=== PATIENT | female | born 1980 ===

== ENCOUNTER 2017-01-12 09:33 | Emergency (ER) | payer OTHER, MEDICAID ==
[2017-01-12 09:48] VITALS: TEMP 97.7
--- NOTE | 2017-01-12 10:44 | C.PDOC ---
History Of Present Illness 36 y/o F c no PMHx p/w R wrist pain x 4 days. Pain is on the radial aspect of the wrist up the forearm. She denies injury or trauma but notes that at work, she is using her hands a lot and pulling on things. She denies fever, procedures. Time Seen by Provider: 01/12/17 10:37 Chief Complaint (Nursing): Upper Extremity Problem/Injury Past Medical History Vital Signs: Last Vital Signs Temp 97.7 F 01/12/17 09:59 Pulse 77 01/12/17 09:59 Resp 16 01/12/17 09:59 BP 145/87 01/12/17 09:59 Pulse Ox 100 01/12/17 11:45 Family History: States: No Known Family Hx - Social History Hx Alcohol Use: No Hx Substance Use: No - Immunization History Hx Tetanus Toxoid Vaccination: Yes Hx Influenza Vaccination: Yes Hx Pneumococcal Vaccination: No Review Of Systems Except As Marked, All Systems Reviewed And Found Negative. Constitutional: Negative for: Fever Musculoskeletal: Negative for: Hand Pain Physical Exam - Physical Exam Appears: No Acute Distress Skin: No Rash Extremity: Tenderness (R wrist snuffbox and radial aspect of wrist. No forearm or hand tenderness.) Extremity: Right: Normal ROM (wrist, elbow, supination/pronation) Pulses: Left Radial: Normal, Right Radial: Normal Neurological/Psych: Normal Motor, Normal Sensation ED Course And Treatment O2 Sat by Pulse Oximetry: 100 - Other Rad Right Wrist X-ray X-Ray: Interpreted by Me, Viewed By Me Interpretation: Right wrist four views. History: Wrist pain and swelling. Comparison: None available. Findings: Prominent narrowing of the radiocarpal joint space with articular surface remodeling and sclerosis of the distal radius. Bony productive change at the ulnar aspect of the distal radius. Two bony ossific densities seen at the level of the distal ulna which may represent fracture deformities of the ulnar styloid, possibly chronic. Prominent widening of the scapholunate interval measuring up to 7.8 millimeters with proximal migration of the capitate bone to the radiocarpal joint space which may represent developing SLAC wrist. Mild negative ulnar variance. Lucency through the mid waist of the capitate bone may represent a vascular groove. Impression: Prominent narrowing of the radiocarpal joint space with articular surface remodeling and sclerosis of the distal radius. Bony productive change at the ulnar aspect of the distal radius. Two bony ossific densities seen at the level of the distal ulna which may represent fracture deformities of the ulnar styloid, possibly chronic. Prominent widening of the scapholunate interval measuring up to 7.8 millimeters with proximal migration of the capitate bone to the radiocarpal joint space which may represent developing SLAC wrist. Mild negative ulnar variance. Lucency through the mid waist of the capitate bone may represent a vascular groove. If pain persists, consider MRI. Medical Decision Making Medical Decision Making: Toradol for pain. XR to rule out fracture. Will apply splint for immobilization and f/u with Ortho. Disposition - Disposition Referrals: Smitha Shore MD [Staff Provider] - Disposition: HOME/ ROUTINE Disposition Time: 11:48 Condition: STABLE Prescriptions: Famotidine [Pepcid] 1 tab PO BID #14 tab Ibuprofen [Motrin] 600 mg PO Q6 #25 tab Instructions: Wrist Injury (ED) Forms: Work Excuse - Clinical Impression Clinical Impression: Wrist pain
--- NOTE | 2017-01-12 11:29 | RAD ---
Right wrist four views History: Wrist pain and swelling. Comparison: None available. Findings: Prominent narrowing of the radiocarpal joint space with articular surface remodeling and sclerosis of the distal radius. Bony productive change at the ulnar aspect of the distal radius. Two bony ossific densities seen at the level of the distal ulna which may represent fracture deformities of the ulnar styloid, possibly chronic. Prominent widening of the scapholunate interval measuring up to 7.8 millimeters with proximal migration of the capitate bone to the radiocarpal joint space which may represent developing SLAC wrist. Mild negative ulnar variance. Lucency through the mid waist of the capitate bone may represent a vascular groove. Impression: Prominent narrowing of the radiocarpal joint space with articular surface remodeling and sclerosis of the distal radius. Bony productive change at the ulnar aspect of the distal radius. Two bony ossific densities seen at the level of the distal ulna which may represent fracture deformities of the ulnar styloid, possibly chronic. Prominent widening of the scapholunate interval measuring up to 7.8 millimeters with proximal migration of the capitate bone to the radiocarpal joint space which may represent developing SLAC wrist. Mild negative ulnar variance. Lucency through the mid waist of the capitate bone may represent a vascular groove. If pain persists, consider MRI.
[2017-01-12 12:41] VITALS: BP 148/91; PULSE 78; RESP 18; O2SAT 99
== END 2017-01-12 12:41 | disposition home or self-care (01) ==
LOC: C.ER 09:33
DX: M25.531 Pain in right wrist (principal)
CPT/HCPCS: 29125; 73110; 96372; 99285; J1885

== ENCOUNTER 2018-09-20 13:02 | Emergency (ER) | payer MEDICAID ==
[2018-09-20 13:30] VITALS: O2SAT 100
--- NOTE | 2018-09-20 15:38 | C.PDOC ---
History Of Present Illness 38 year old female presents to the ED for evaluation of sore throat which began 3 days ago. Patient reports trouble with swallowing. She has not taken any medicine for symptoms. Patient denies fever, chills, cough. Time Seen by Provider: 09/20/18 14:38 Chief Complaint (Nursing): ENT Problem History Per: Patient History/Exam Limitations: None Onset/Duration Of Symptoms: Hrs Current Symptoms Are (Timing): Still Present Past Medical History Reviewed: Historical Data, Nursing Documentation, Vital Signs Vital Signs: Last Vital Signs Temp 97.3 F L 09/20/18 13:30 Pulse 102 H 09/20/18 13:30 Resp 20 09/20/18 13:30 BP 158/103 H 09/20/18 13:30 Pulse Ox 100 09/20/18 13:30 - Medical History PMH: No Chronic Diseases Surgical History: No Surg Hx Family History: States: Unknown Family Hx - Social History Hx Alcohol Use: No Hx Substance Use: No - Immunization History Hx Tetanus Toxoid Vaccination: Yes Hx Influenza Vaccination: Yes Hx Pneumococcal Vaccination: No Review Of Systems Constitutional: Negative for: Fever, Chills ENT: Positive for: Throat Pain Respiratory: Negative for: Cough Physical Exam - Physical Exam Appears: Non-toxic, No Acute Distress, Other (obese female ) Skin: Normal Color, Warm, Dry Head: Atraumatic, Normacephalic Eye(s): bilateral: Normal Inspection Ear(s): Bilateral: Normal Nose: Normal, No Discharge Oral Mucosa: Moist Throat: Erythema, Exudate (scant white plaques on right ), Other (bilateral tonsillar enlargement ) Neck: Supple Lymphatic: Other (tender submandibular nodes ) Chest: Symmetrical, No Deformity, No Tenderness Cardiovascular: Rhythm Regular, No Murmur Respiratory: Normal Breath Sounds, No Rales, No Rhonchi, No Wheezing Extremity: Normal ROM, Capillary Refill (less than 2 seconds ) Neurological/Psych: Oriented x3, Normal Speech, Normal Cognition ED Course And Treatment O2 Sat by Pulse Oximetry: 100 (on RA) Pulse Ox Interpretation: Normal Medical Decision Making Medical Decision Making: Progress: Rapid strep test ordered, resulted positive. Tylenol PO given. sore throat x 3 days. Strep a psoitive. d/c with tylenol and amoxicillin Disposition Counseled Patient/Family Regarding: Studies Performed, Diagnosis, Need For Followup, Rx Given - Disposition Referrals: [facility] [Outside] [facility] [Outside] Disposition: HOME/ ROUTINE Disposition Time: 15:37 Condition: GOOD Additional Instructions: [facility] Tylenol para el dolor o la fiebre segn las indicaciones. Termina todos los antibiticos. Karina grgaras con agua salada caliente varias veces al da. Seguimiento en clnica en pocos martinez. Regrese a la christina de emergencias para cualquier sntoma peor. 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 - Scribe Statement The provider has reviewed the documentation as recorded by the Scribe (Jie Berrios) All medical record entries made by the Scribe were at my direction and personally dictated by me. I have reviewed the chart and agree that the record accurately reflects my personal performance of the history, physical exam, medical decision making, and the department course for this patient. I have also personally directed, reviewed, and agree with the discharge instructions and disposition.
[2018-09-20 15:49] VITALS: BP 156/95; PULSE 99; RESP 18; TEMP 99
== END 2018-09-20 16:17 | disposition home or self-care (01) ==
LOC: C.ER 13:02
DX: J02.0 Streptococcal pharyngitis (principal)